=== PATIENT | female | born 1960 | race Caucasian/White ===

== ENCOUNTER 2022-01-26 12:57 | Emergency (ER) | payer BC ==
[2022-01-26 13:24] VITALS: BP 155/99; PULSE 114
[2022-01-26] MEDS ORDERED: Ketorolac 30 MG/ML SDV IM ONE (14:20)
[2022-01-26] MEDS ORDERED: Orphenadrine 60 MG/2 ML Inj IM ONE (14:20)
== END 2022-01-26 15:50 | disposition home or self-care (01) ==
LOC: DL.ED 12:57
DX: S32.020A Wedge compression fracture of second lumbar vertebra, initial encounter for closed fracture (principal); I10 Essential (primary) hypertension; E11.9 Type 2 diabetes mellitus without complications; Z88.2 Allergy status to sulfonamides; Z88.0 Allergy status to penicillin; Z88.8 Allergy status to other drugs, medicaments and biological substances; Z79.899 Other long term (current) drug therapy; Z79.84 Long term (current) use of oral hypoglycemic drugs; Z87.891 Personal history of nicotine dependence; W19.XXXA Unspecified fall, initial encounter; Y92.009 Unspecified place in unspecified non-institutional (private) residence as the place of occurrence of the external cause
CPT/HCPCS: 72100; 72220; 96372; 99283; J1885; J2360